=== PATIENT | male | born 1950 | race Caucasian/White ===

== ENCOUNTER 2016-08-02 20:37 | Emergency (ER) | payer OTHER ==
[~2016-08-02] VITALS: Ht 170.2 cm; Wt 81.2 kg
[2016-08-02 20:47] VITALS: TEMP 36.9; Ht 170.2 cm; Wt 81.2 kg
[2016-08-02] MEDS ORDERED: GABA-113 PO (22:07)
[2016-08-02] MEDS ORDERED: ASPI81TA28 PO (22:07)
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
[2016-08-02 23:54] VITALS: BP 145/92; PULSE 88; O2SAT 96
[2016-08-02] MEDS ORDERED: ACETAMINOPHEN 500 MG TAB PO STA (23:58)
[2016-08-03] MEDS ORDERED: DIPHTHERIA/TETANUS/PERTUSSIS 0.5 ML SYR/VIAL IM. ONE
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
== END 2016-08-03 00:05 | disposition home or self-care (01) ==
LOC: C.EDC 20:40
DX: S09.90XA Unspecified injury of head, initial encounter (principal); S60.812A Abrasion of left wrist, initial encounter; S49.92XA Unspecified injury of left shoulder and upper arm, initial encounter; S19.9XXA Unspecified injury of neck, initial encounter; V58.5XXA Driver of pick-up truck or van injured in noncollision transport accident in traffic accident, initial encounter; Y99.0 Civilian activity done for income or pay; Z23 Encounter for immunization